=== PATIENT | female | born 1950 | race Caucasian/White ===

== ENCOUNTER 2017-12-05 12:45 | Emergency (ER) | payer MEDICARE, OTHER ==
[2017-12-05] MEDS ORDERED: ALBUTEROL/IPRATROPIUM 1 VIAL SOL ONE (13:13)
[2017-12-05] MEDS ORDERED: ALBUTEROL/IPRATROPIUM 1 VIAL SOL INH PRN (13:19)
[2017-12-05] MEDS ORDERED: SOLUMEDROL 125 MG/2 ML 125 MG/2 ML PDS IV ONE (13:19)
[2017-12-05] MEDS ORDERED: SOLUMEDROL 125 MG/2 ML 125 MG/2 ML PDS ONE (13:23)
[2017-12-05 13:24] VITALS: TEMP 97.6; O2SAT 96
[2017-12-05 13:46] LABS: BASOPHILS % (AUTO) 1 % (0-3); EOSINOPHILS % (AUTO) 1 % (0-9); HEMATOCRIT 43 % (35-47); HEMOGLOBIN 14.6 gm/dl (12.0-15.5); LYMPHOCYTES % (AUTO) 24.8 % (10-50); MEAN CORPUSCULAR HEMOGLOBIN 29.1 pg (27.0-32.0); MEAN CORPUSCULAR VOLUME 86 fL (81-99); NEUTROPHILS % (AUTO) 62.7 % (37-80)
[2017-12-05 13:54] LABS: CALCIUM 8.6 mg/dl (8.5-10.1); CARBON DIOXIDE 23.8 mEq/L (21-32); CREATININE 0.91 mg/dl (0.60-1.00)
[2017-12-05 15:26] VITALS: BP 138/83; PULSE 74; RESP 20
== END 2017-12-05 15:20 | disposition home or self-care (01) | DRG 203 ==
LOC: ED 12:45
DX: J45.21 Mild intermittent asthma with (acute) exacerbation (principal); D72.819 Decreased white blood cell count, unspecified; R05 Cough
CPT/HCPCS: 71046; 80048; 85025; 99283; J2930